=== PATIENT | female | born 1975 | race Caucasian/White ===

== ENCOUNTER 2021-02-16 17:33 | Inpatient (IN) ==
[2021-02-16] MEDS ORDERED: *HR* LORazepam 1 MG TABLET PO PRN (23:52)
[2021-02-16] MEDS ORDERED: Ibuprofen 400 MG TABLET PO PRN (23:52)
[2021-02-16] MEDS ORDERED: Haloperidol Lactate 5 MG/ML VIAL IM PRN (23:52)
[2021-02-16] MEDS ORDERED: haloperidoL 5 MG TABLET PO PRN (23:52)
[2021-02-16] MEDS ORDERED: *HR* LORazepam 2 MG/ML VIAL IM PRN (23:52)
[2021-02-17] MEDS ORDERED: QUEtiapine Fumarate 25 MG TABLET PO PRN
[2021-02-17] MEDS ORDERED: Albuterol Neb 1.25 MG/3 ML VIAL IH PRN (00:25)
[2021-02-17 02:54] LABS: Influenza A PCR Negative (Negative); Influenza B PCR Negative (Negative); Resp. Syncytial Virus PCR Negative (Negative)
[2021-02-17 03:03] LABS: SARS-CoV-2 by PCR (In House) Negative (Negative)
[2021-02-17] MEDS: carvediloL 25 MG TABLET PO SCH ×2 (08:47→17:54)
[2021-02-17] MEDS: tiZANidine 4 MG TABLET PO SCH ×2 (08:47→20:31)
[2021-02-17] MEDS: lamoTRIgine 100 MG TABLET PO SCH (08:48)
[2021-02-17] MEDS: Budesonide/Formoterol 160/4.5 1 PUFF INH IH SCH (12:17)
[2021-02-17] MEDS: Nystatin Cream 15 GM TUBE TP SCH (20:32)
[2021-02-18] MEDS ORDERED: traZODone 50 MG TABLET PO PRN (08:30)
[2021-02-18] MEDS: tiZANidine 4 MG TABLET PO SCH ×2 (09:19→21:13)
[2021-02-18] MEDS: carvediloL 25 MG TABLET PO SCH ×2 (09:20→16:21)
[2021-02-18] MEDS: lamoTRIgine 100 MG TABLET PO SCH (09:21)
[2021-02-18] MEDS: Budesonide/Formoterol 160/4.5 1 PUFF INH IH SCH (12:52)
[2021-02-18] MEDS: Nystatin Cream 15 GM TUBE TP SCH ×3 (12:54→21:13)
[2021-02-18] MEDS: Melatonin 3 MG TABLET PO SCH (21:13)
[2021-02-19] MEDS: tiZANidine 4 MG TABLET PO SCH ×2 (08:46→20:27)
[2021-02-19] MEDS: carvediloL 25 MG TABLET PO SCH ×2 (08:47→16:44)
[2021-02-19] MEDS: lamoTRIgine 100 MG TABLET PO SCH (08:47)
[2021-02-19] MEDS: Acetaminophen 325 MG TABLET PO PRN ×2 (08:47→20:27)
[2021-02-19] MEDS: Budesonide/Formoterol 160/4.5 1 PUFF INH IH SCH (08:52)
[2021-02-19] MEDS: Nystatin Cream 15 GM TUBE TP SCH ×3 (08:52→20:31)
[2021-02-19] MEDS: Melatonin 3 MG TABLET PO SCH (20:26)
[2021-02-20] MEDS: tiZANidine 4 MG TABLET PO SCH (08:49)
[2021-02-20] MEDS: carvediloL 25 MG TABLET PO SCH (08:49)
[2021-02-20] MEDS: lamoTRIgine 100 MG TABLET PO SCH (08:50)
[2021-02-20] MEDS: Budesonide/Formoterol 160/4.5 1 PUFF INH IH SCH (08:51)
[2021-02-20] MEDS: Nystatin Cream 15 GM TUBE TP SCH (08:53)
[2021-02-20 09:14] VITALS: BP 120/74; PULSE 71; TEMP 98.5; O2SAT 92
[2021-02-20] MEDS ORDERED: FLU Vac QV 21-22 (6Month+)/PF 0.5 ML SYRINGE IM ONE (10:04)
== END 2021-02-20 15:30 | disposition home or self-care (01) | DRG 885 ==
LOC: EMEROOARM 17:33 → 1ANU 23:31
PROVIDERS: ADMIT Psychiatry & Neurology Psychiatry; ATTEND Psychiatry & Neurology Psychiatry

== ENCOUNTER 2021-04-20 21:12 | Inpatient (IN) ==
[2021-04-20] MEDS ORDERED: Potassium Chloride Elixir 20 MEQ/15 ML UDC PO ONE (23:14)
[2021-04-21 01:01] LABS: BUN/Creatinine Ratio 11 (6-26); Blood Urea Nitrogen 10 mg/dL (6-20); Calcium 9.1 mg/dL (8.6-10.3); Carbon Dioxide 31 mEq/L (23-29); Chloride 94 mEq/L (98-107); Glucose 208 mg/dL (70-105); Magnesium 1.9 mg/dL (1.6-2.6); Osmolality,Calculated 287 (280-300); Potassium 2.2 mEq/L (3.5-5.1); Sodium 136 mEq/L (136-145); eGFR For African Americans > 60 (> 60); eGFR For Non-African Americans > 60 (> 60)
[2021-04-21] MEDS ORDERED: Ondansetron 4 MG/2 ML VIAL IVP ONE (01:39)
[2021-04-21] MEDS ORDERED: Naloxone 0.4 MG/ML INJ IVP PRN (01:56)
[2021-04-21] MEDS ORDERED: Melatonin 3 MG TABLET PO PRN (01:56)
[2021-04-21] MEDS ORDERED: Ondansetron 4 MG/2 ML VIAL IVP PRN (01:56)
[2021-04-21 02:56] LABS: Potassium,Urine 86.5 mEq/L
[2021-04-21 02:57] LABS: Amphetamine Screen,Urine Negative ng/mL (Cutoff=1000); Barbiturate Screen,Urine Negative ng/mL (Cutoff=200); Benzodiazepines Screen,Urine Positive ng/mL (Cutoff=200); Cannabinoid Screen,Urine Negative ng/mL (Cutoff = 50); Cocaine Screen,Urine Negative ng/mL (Cutoff= 300); Opiate Screen,Urine Negative ng/mL (Cutoff=300); Phencyclidine Screen,Urine Negative ng/mL (Cutoff=25)
[2021-04-21] MEDS: 0.9 % Sodium Chloride 1,000 ML IVC SCH ×2 (03:28→11:10)
[2021-04-21] MEDS ORDERED: Ipratropium/Albuterol Neb 3 ML IH PRN (03:34)
[2021-04-21] MEDS ORDERED: D5% in Water 1,000 ML IVC PRN (03:38)
[2021-04-21] MEDS ORDERED: *HR* Dextrose 50 % in Water (Syg) 50 ML SYRINGE IVP PRN (03:38)
[2021-04-21] MEDS ORDERED: Dextrose Gel 15 GM/37.5 ML TUBE PO PRN ×2 (03:38)
[2021-04-21 05:04] LABS: Hematocrit 36.6 % (35.3-44.9); Hemoglobin 12.1 g/dL (11.5-15.4); Mean Corpuscular HGB Conc 33.1 g/dL (31.6-35.5); Mean Corpuscular Hemoglobin 28.8 pg (28.0-33.3); Mean Corpuscular Volume 87.1 fL (83.0-100.0); Platelet Count 307 K/mcL (140-400); Red Cell Distribution Width 13.6 % (11.5-14.5); White Blood Count 10.4 K/mcL (4.3-11.1)
[2021-04-21 05:10] LABS: VBG HCO3 33 mEq/L (21-27); VBG PCO2 46 mmHg (41-51); VBG PH 7.46 pH Units (7.32-7.42); VBG PO2 134 mmHg (25-50)
[2021-04-21 05:14] LABS: INR 1.1
[2021-04-21 05:21] LABS: Estimated Average Glucose 203 mg/dl; Hemoglobin A1C 8.7 %
[2021-04-21 05:29] LABS: Alanine Aminotransferase 26 Units/L (7-52); Albumin 3.8 g/dL (3.5-5.7); Albumin/Globulin Ratio 1.2 (1.1-2.2); Alkaline Phosphatase 73 Units/L (34-104); Aspartate Amino Transferase 16 Units/L (13-39); BUN/Creatinine Ratio 10 (6-26); Bilirubin,Total 0.4 mg/dL (0.3-1.0); Blood Urea Nitrogen 10 mg/dL (6-20); Calcium 9.1 mg/dL (8.6-10.3); Carbon Dioxide 34 mEq/L (23-29); Chloride 93 mEq/L (98-107); Globulin 3.1 g/dL (2.4-3.5); Glucose 207 mg/dL (70-105); Magnesium 2.4 mg/dL (1.6-2.6); Osmolality,Calculated 289 (280-300); Phosphorous 4.8 mg/dL (2.7-4.5); Potassium 2.4 mEq/L (3.5-5.1); Sodium 137 mEq/L (136-145); Total Protein 6.9 g/dL (6.4-8.9); eGFR For African Americans > 60 (> 60); eGFR For Non-African Americans > 60 (> 60)
[2021-04-21 05:41] LABS: Influenza A PCR Negative (Negative); Influenza B PCR Negative (Negative); Resp. Syncytial Virus PCR Negative (Negative)
[2021-04-21 05:42] LABS: SARS-CoV-2 by PCR (In House) Negative (Negative)
[2021-04-21] MEDS: Insulin LISPRO 300 UNITS/3 ML VIAL SUBQ SCH ×4 (07:32→20:55)
[2021-04-21] MEDS ORDERED: carvediloL 25 MG TABLET PO SCH (08:00)
[2021-04-21] MEDS: Budesonide/Formoterol 160/4.5 1 PUFF INH IH SCH ×2 (08:09→19:40)
[2021-04-21] MEDS: *HR* Enoxaparin 40 MG/0.4 ML SYRINGE SQ SCH ×2 (08:41→20:55)
[2021-04-21] MEDS ORDERED: lamoTRIgine 100 MG TABLET PO SCH (09:00)
[2021-04-21] MEDS: Acetaminophen 325 MG TABLET PO PRN (11:08)
[2021-04-21] MEDS: carvediloL 25 MG TABLET PO SCH (17:17)
[2021-04-21] MEDS: FluPHENAZine 10 MG TABLET PO SCH (20:55)
[2021-04-21] MEDS: Insulin DETEMIR 100 UNIT/ML X5UNITS SUBQ SCH (20:55)
[2021-04-21] MEDS ORDERED: FluPHENAZine 10 MG TABLET PO SCH (21:00)
[2021-04-21] MEDS: Clotrimazole 1% CRM 15 GM TUBE TP SCH (21:35)
[2021-04-22 02:11] LABS: BUN/Creatinine Ratio 11 (6-26); Blood Urea Nitrogen 12 mg/dL (6-20); Calcium 8.8 mg/dL (8.6-10.3); Carbon Dioxide 32 mEq/L (23-29); Chloride 101 mEq/L (98-107); Glucose 235 mg/dL (70-105); Osmolality,Calculated 293 (280-300); Potassium 2.7 mEq/L (3.5-5.1); Sodium 138 mEq/L (136-145); eGFR For African Americans > 60 (> 60); eGFR For Non-African Americans 57 (> 60)
[2021-04-22 02:13] LABS: Iron 36 mcg/dL (50-170)
[2021-04-22 02:32] LABS: Ferritin 15 ng/mL (10-120)
[2021-04-22 02:35] LABS: Folate 15.4 ng/mL (3.0-16.0)
[2021-04-22 03:36] LABS: % Iron Saturation 10 % (15-50); Transferrin 263 mg/dL (203-362)
[2021-04-22] MEDS: Budesonide/Formoterol 160/4.5 1 PUFF INH IH SCH ×2 (07:52→19:41)
[2021-04-22] MEDS: Acetaminophen 325 MG TABLET PO PRN (08:13)
[2021-04-22] MEDS: lamoTRIgine 100 MG TABLET PO SCH (08:14)
[2021-04-22] MEDS: carvediloL 25 MG TABLET PO SCH ×2 (08:15→16:41)
[2021-04-22] MEDS: Insulin LISPRO 300 UNITS/3 ML VIAL SUBQ SCH ×4 (08:19→20:16)
[2021-04-22] MEDS: *HR* Enoxaparin 40 MG/0.4 ML SYRINGE SQ SCH ×2 (08:19→20:16)
[2021-04-22] MEDS: Clotrimazole 1% CRM 15 GM TUBE TP SCH ×2 (08:19→20:15)
[2021-04-22] MEDS: FluPHENAZine 10 MG TABLET PO SCH (20:15)
[2021-04-22] MEDS: Insulin DETEMIR 100 UNIT/ML X5UNITS SUBQ SCH (20:16)
[2021-04-23 01:00] LABS: BUN/Creatinine Ratio 13 (6-26); Blood Urea Nitrogen 11 mg/dL (6-20); Calcium 8.7 mg/dL (8.6-10.3); Carbon Dioxide 30 mEq/L (23-29); Chloride 102 mEq/L (98-107); Glucose 169 mg/dL (70-105); Osmolality,Calculated 293 (280-300); Potassium 2.8 mEq/L (3.5-5.1); Sodium 140 mEq/L (136-145); eGFR For African Americans > 60 (> 60); eGFR For Non-African Americans > 60 (> 60)
[2021-04-23] MEDS: Budesonide/Formoterol 160/4.5 1 PUFF INH IH SCH ×2 (07:42→19:49)
[2021-04-23] MEDS: Insulin LISPRO 300 UNITS/3 ML VIAL SUBQ SCH ×4 (09:10→20:10)
[2021-04-23] MEDS: *HR* Enoxaparin 40 MG/0.4 ML SYRINGE SQ SCH ×2 (09:10→20:09)
[2021-04-23] MEDS: Clotrimazole 1% CRM 15 GM TUBE TP SCH ×2 (09:11→20:09)
[2021-04-23] MEDS: carvediloL 25 MG TABLET PO SCH ×2 (09:11→15:57)
[2021-04-23] MEDS: lamoTRIgine 100 MG TABLET PO SCH (09:11)
[2021-04-23] MEDS: Insulin DETEMIR 100 UNIT/ML X5UNITS SUBQ SCH (20:10)
[2021-04-23] MEDS: FluPHENAZine 10 MG TABLET PO SCH (20:10)
[2021-04-24 06:27] LABS: BUN/Creatinine Ratio 12 (6-26); Blood Urea Nitrogen 12 mg/dL (6-20); Carbon Dioxide 26 mEq/L (23-29); Chloride 103 mEq/L (98-107); Glucose 176 mg/dL (70-105); Osmolality,Calculated 292 (280-300); Potassium 3.2 mEq/L (3.5-5.1); Sodium 139 mEq/L (136-145); eGFR For African Americans > 60 (> 60); eGFR For Non-African Americans > 60 (> 60)
[2021-04-24] MEDS: Budesonide/Formoterol 160/4.5 1 PUFF INH IH SCH (07:38)
[2021-04-24] MEDS: lamoTRIgine 100 MG TABLET PO SCH (08:01)
[2021-04-24] MEDS: *HR* Enoxaparin 40 MG/0.4 ML SYRINGE SQ SCH (08:02)
[2021-04-24] MEDS: carvediloL 25 MG TABLET PO SCH ×2 (08:02→16:42)
[2021-04-24] MEDS: Insulin LISPRO 300 UNITS/3 ML VIAL SUBQ SCH ×3 (08:02→16:42)
[2021-04-24] MEDS: Clotrimazole 1% CRM 15 GM TUBE TP SCH (08:11)
[2021-04-24 14:25] VITALS: PULSE 81; TEMP 98.5; O2SAT 92
[2021-04-24 17:49] VITALS: BP 185/133
== END 2021-04-24 19:40 | disposition home or self-care (01) | DRG 641 ==
LOC: 3BNU 21:12 → EMEROOARM 21:12 → SUATTDRO 04-21 01:56 → 3BNU 04-21 02:19
PROVIDERS: ADMIT Internal Medicine; ATTEND Registered Nurse

== ENCOUNTER 2021-09-03 13:27 | Inpatient (IN) ==
[2021-09-03] MEDS ORDERED: Mag Hydrox/Al Hydrox/Simeth 30 ML UDC PO PRN (15:34)
[2021-09-03] MEDS ORDERED: MOM Conc 10 ML UD.LIQ PO PRN (15:34)
[2021-09-03] MEDS ORDERED: *HR* LORazepam 2 MG/ML VIAL IM PRN (15:34)
[2021-09-03] MEDS ORDERED: *HR* LORazepam 1 MG TABLET PO PRN (15:34)
[2021-09-03] MEDS ORDERED: Haloperidol Lactate 5 MG/ML VIAL IM PRN (15:34)
[2021-09-03] MEDS ORDERED: traZODone 50 MG TABLET PO PRN (15:34)
[2021-09-03] MEDS ORDERED: haloperidoL 5 MG TABLET PO PRN (15:34)
[2021-09-03] MEDS: Acetaminophen 325 MG TABLET PO PRN (18:49)
[2021-09-04] MEDS: Acetaminophen 325 MG TABLET PO PRN ×2 (09:11→21:28)
[2021-09-04] MEDS ORDERED: Albuterol Neb 1.25 MG/3 ML VIAL IH PRN (13:29)
[2021-09-04] MEDS: Spironolactone 25 MG TABLET PO SCH (15:20)
[2021-09-04] MEDS: Cholecalciferol (D-3) 1,000 UNIT (25MCG) TABLET PO SCH (15:21)
[2021-09-04] MEDS: lamoTRIgine 100 MG TABLET PO SCH (15:21)
[2021-09-04] MEDS: FluPHENAZine 10 MG TABLET PO SCH (15:21)
[2021-09-04] MEDS: carvediloL 25 MG TABLET PO SCH (17:03)
[2021-09-04] MEDS ORDERED: Nystatin POWDER 30 GM BOTTLE TP PRN (17:24)
[2021-09-04] MEDS ORDERED: Melatonin 3 MG TABLET PO SCH (21:00)
[2021-09-04] MEDS: tiZANidine 4 MG TABLET PO SCH (21:27)
[2021-09-05] MEDS ORDERED: *HR* GlyBURIDE 5 MG TABLET PO SCH (08:00)
[2021-09-05] MEDS: lamoTRIgine 100 MG TABLET PO SCH (09:12)
[2021-09-05] MEDS: Cholecalciferol (D-3) 1,000 UNIT (25MCG) TABLET PO SCH (09:17)
[2021-09-05] MEDS: FluPHENAZine 10 MG TABLET PO SCH (09:17)
[2021-09-05] MEDS: carvediloL 25 MG TABLET PO SCH (09:17)
[2021-09-05] MEDS: tiZANidine 4 MG TABLET PO SCH (09:18)
[2021-09-05] MEDS: Spironolactone 25 MG TABLET PO SCH (09:21)
[2021-09-05 10:19] VITALS: BP 123/96; PULSE 74; TEMP 97.2; O2SAT 96
== END 2021-09-05 14:50 | disposition home or self-care (01) | DRG 885 ==
LOC: EMEROOARM 13:27 → 1ANU 16:37
PROVIDERS: ADMIT Psychiatry & Neurology Psychiatry; ATTEND Psychiatry & Neurology Psychiatry